=== PATIENT | male | born 1960 | race Caucasian/White ===

== ENCOUNTER 2025-04-05 21:24 | Emergency (ER) | payer MEDICAID ==
[~2025-04-05] VITALS: Ht 172.7 cm; Wt 79.0 kg
[2025-04-05] MEDS ORDERED: HYDR-3686 PO (22:13)
[2025-04-05] MEDS ORDERED: DOXY100C43 PO (22:13)
[2025-04-05] MEDS ORDERED: PERM60CR21 TOP (22:13)
--- NOTE | 2025-04-05 22:15 | Physician Documentation ---
History of Present Illness ~ Chief Complaint: Itching Stated Complaint: LICE Time Seen by MD: 21:56 HPI 64-year-old male on sheltered presents to the emergency department with with request for medication for upper extremities and upper back rash that he believes may be scabies, bedbugs or lice. Medication Reconciliation Allergies: Coded Allergies: No Known Allergies (Unverified , 04/05/25) Scheduled Doxycycline Monohydrate (Doxycycline Monohydrate), 100 MG PO BID Hydroxyzine Hcl* (Atarax*), 1 TAB PO Q8H Permethrin (Permethrin), 1 APPLIC TOP ONCE Review of Systems All Other Systems at this time: Reviewed and Negative (See HPI) Integumentary: Reports: itching, lesions Integumentary Scattered excoriated non many your lesions to both upper extremities and upper back no involvement to the dorsum of the hands or scalp. Physical Exam Vital Signs: RN Vital Signs have been reviewed: Yes, Temperature: 97.7, Heart Rate: 124, Respiratory Rate: 18, BP: 152/87, Pulse Oximetry: 98, Weight: 79.000 Oxygen Flow Rate: 0 General Appearance: alert, WD/WN, no apparent distress Eyes, Ears: normal ENT inspection Respiratory: no respiratory distress Chest: no accessory muscle use Cardiovascular: tachycardia Gastrointestinal: non-tender Extremities: normal range of motion Skin Scattered excoriated lesions to both upper extremities not including the dorsum of the hands or palms, scattered lesions to the upper back that are nonlinear or vesicular. Neurologic: oriented x4 Psychiatric: normal mood/affect Progress Results/Orders Results/Orders Completed Orders - RICHI GUILLORY Permethrin Topical Cream (Elimite Cream (04/05/25 22:15) Doxycycline 100mg Capsule (Vibramycin 10 (04/05/25 22:15) Hydroxyzine Tablet (Atarax Tablet) (04/05/25 22:15) Vital Signs 04/05/25 04/05/25 21:48 23:05 Temp 97.7 98.6 Pulse 124 118 Resp 18 20 B/P (MAP) 152/87 150/88 Pulse Ox 98 99 O2 Flow Rate 0 Medical Decision Making Additional information obtaine: N/A Findings 64-year-old male on sheltered presents with itching secondary to likely pediculosis, parasitosis and/or environmental elements. Provided 1st dose permethrin cream in the emergency department along with doxycycline for secondary infection d/t excoriation and antihistamine for pruritus. Safely discharged in the emergency department with all resources addressed prior to d ischarge in no clinical suspicion for systemic infection. Differential Dx:Considerations: Include: Atopic dermatitis, Contact dermatitis, Drug reaction, Erythema multiforme, Erysipelas, Herpes zoster, Impetigo, Intertrigo, Molluscum contagiosum, Pediculosis, Psoriaisis, Scabies, Urticaria, Varicella, Other (Paracentesis) Departure Disposition: HOME / SELF CARE / HOMELESS Impression: Primary Impression: Itching Condition: Improved Discharge Instructions: Bernard, [id number] Additional Instructions: Tonight in the emergency department you received topical cream to apply a L place for 8-10 hours. Also he received 1st dose antibiotic and medication for itching. Please obtain a prescription sent to pharmacy follow up with the [facility] as needed. Referrals: NO PRIMARY CARE PROVIDER (PCP) Prescriptions Permethrin (Permethrin) 5 % Cream.gm. 1 APPLIC TOP ONCE for 1 Day, #60 GM apply head to toe at night wash off in the morning reapply one more time in a week Prov: RICHI GUILLORY 04/05/25 Doxycycline Monohydrate (Doxycycline Monohydrate) 100 Mg Capsule 100 MG PO BID, #20 CAP may sub doxycycline hyclate or azithromycin z-pack as prescribed Prov: RICHI GUILLORY 04/05/25 Hydroxyzine Hcl* (Atarax*) 25 Mg Tablet 1 TAB PO Q8H for anxiety for 10 Days, #30 TAB Prov: RICHI GUILLORY 04/05/25 Education Educated: Patient Educated regarding: diagnosis, treatment, prognosis, need for follow up Signature Scribe Signature: . Attestation: . RICHI GUILLORY Apr 05, 2025 22:15
[2025-04-05] MEDS: DOXYCYCLINE 100MG CAPSULE PO STA (23:03)
[2025-04-05] MEDS: Permethrin Cream 60gm TP ONE (23:03)
[2025-04-05 23:05] VITALS: BP 150/88; PULSE 118; RESP 20; TEMP 98.6; O2SAT 99
== END 2025-04-05 23:06 | disposition home or self-care (01) ==
LOC: ER 21:25
DX: L29.9 Pruritus, unspecified (principal); Z79.899 Other long term (current) drug therapy
CPT/HCPCS: 99284; Q0177